=== PATIENT | male | born 1965 | race Caucasian/White ===

== ENCOUNTER → 2016-12-25 | Day surgery (SDC) | payer BC ==
[~2016-12-25] VITALS: Ht 190.5 cm; Wt 131.5 kg
[2016-12-25] VITALS (8 sets, daily range): BP systolic 119–137; BP diastolic 70–86
[~2016-12-25] MED LIST: ALLOPURINOL100 M1 ORAL; COLCHICINE0.6 M1 PO; ELIQUIS5 MG PO; Propofol 10mg/ml 20ml IV ONE
--- NOTE | 2016-12-25 10:42 | Pre-Procedure Note/Attestation ---
Pre-Procedure Note/Attestation Complete Prior to Procedure Planned Procedure: not applicable Procedure Narrative: eus Indications for Procedure Pre-Operative Diagnosis: wt loss, diarrhea, FHX of pancreatic cancer Attestation I attest that I discussed the nature of the procedure; its benefits; risks and complications; and alternatives (and the risks and benefits of such alternatives ), prior to the procedure, with the patient (or the patient's legal territory service representative). I attest that, if there was a reasonable possibility of needing a blood transfusion, the patient (or the patient's legal territory service representative) was given the [facility] standardized written summary, pursuant to the [place] Blood Safety Act ([place] Health and Safety Code # 1645, as amended). I attest that I re-evaluated the patient just prior to the surgery and that there has been no change in the patient's H&P, except as documented below: BRANDON CHING Dec 25, 2016 10:42
--- NOTE | 2016-12-25 10:44 | Short Stay Surgery H&P ---
History of Present Illness History of Present Illness Chief Complaint diarrhea, fhx of pancreatic cancer HPI Jorge Monge is a 51 year old male who was admitted on for Abdominal Pain Patient History PAST MEDICAL HISTORY: (1) dvt/PE (2) Diarrhea Past Surgeries: Social History: Review of Systems Cardiovascular: Reports: no symptoms Respiratory: Reports: no symptoms Skeletal: Reports: no symptoms Gastrointestinal: Reports: other Genitourinary: Reports: no symptoms Endocrine: Reports: no symptoms Hematologic: Reports: no symptoms Physical Exam Skin: normal HENT: normal Heart: normal Lungs: normal Abdomen: normal Extremities: normal Plan Plan of Care EUS Final Diagnosis: Attestation Are the patient's medical conditions optimized for surgery? Attestation Response: yes BRANDON CHING Dec 25, 2016 10:44
--- NOTE | 2016-12-25 11:59 | Endoscopy Procedure Note ---
Endoscopy Procedure Note Indication for Procedure: diarhea, recent dvt Procedures Performed: other - EUS Operative Findings/Diagnosis: normal Specimen: none Pt Tolerated Procedure Well: Yes Estimated Blood Loss: none Anesthesiologist: bright Anesthesia: MAC Implant(s) used?: No 50 yrs or older w/o bx or poly: Not Applicable 10yrs. F/U not recommended: Not Applicable BRANDON CHING Dec 25, 2016 11:59
--- NOTE | 2016-12-25 12:06 | Anethesia Preoperative Eval ---
Anesthesia Pre-op PMH/ROS General Date of Evaluation: Dec 25, 2016 Time of Evaluation: 11:25 Anesthesiologist: bright ASA Score: ASA 3 Mallampati Score Class I : Soft palate, uvula, fauces, pillars visible Class II: Soft palate, uvula, fauces visible Class III: Soft palate, base of uvula visible Class IV: Only hard plate visible Mallampati Classification: Class II Surgeon: kranthi Diagnosis: abdominal pain, diarrhea, familly hx pancreatic Ca Surgical Procedure: EUS Anesthesia History: none Allergies: Coded Allergies: NO KNOWN ALLERGIES (Verified Allergy, Unknown, 12/25/16) Past Medical History Pulmonary: Reports: other - pulmonary emboli (10/16) Hematology/Immune: Reports: DVT Anesthesia Pre-op Phys. Exam Physician Exam Last Vital Signs Date Time Temp Pulse Resp B/P Pulse Ox O2 Delivery O2 Flow Rate FiO2 12/25/16 11:21 97.5 73 20 137/86 97 Room Air Airway Exam Mallampati Score: Class II Teeth: intact Anesthesia Pre-op A/P Risk Assessment & Plan Plan: propofol Status Change Before Surgery: Jon Soto MD Dec 25, 2016 12:06
--- NOTE | 2016-12-25 12:07 | Immediate Post-Op Evaluation ---
Immediate Post-Op Evalulation Immediate Post-Op Evalulation Date of Evaluation: Dec 25, 2016 Pain Score (1-10): 0 Nausea: No Vomiting: No Complications none Patient Status: awake, patent, none Hydration Status: adequate Jon Nicole MD Dec 25, 2016 12:07
--- NOTE | 2016-12-25 12:09 | 48 Hour Post Anesthesia Eval ---
Post Anesthesia Evaluation Date of Evaluation: Dec 25, 2016 Airway: patent Nausea: No Vomiting: No Pain Intensity: 0 Hydration Status: adequate Cardiopulmonary Status: stable Mental Status/LOC: patient returned to baseline Follow-up Care/Observations: n/.a Post-Anesthesia Complications: tolerated well Follow-up care needed: ready to discharge Jon Nicole MD Dec 25, 2016 12:09
--- NOTE | 2016-12-25 12:22 | Immediate Post-Op Evaluation ---
Immediate Post-Op Evalulation Immediate Post-Op Evalulation Date of Evaluation: Dec 25, 2016 Time of Evaluation: 12:25 IV Fluids: 600 Blood Pressure Systolic: 123 Blood Pressure Diastolic: 74 Pulse Rate: 56 Respiratory Rate: 20 O2 Sat by Pulse Oximetry: 95 Temperature (Fahrenheit): 98 Pain Score (1-10): 0 Nausea: No Vomiting: No Complications none Patient Status: awake, patent, none Hydration Status: adequate Jon Nicole MD Dec 25, 2016 12:22
--- NOTE | 2016-12-27 14:31 | Cardiology Report ---
APPROVED REPORT EKG Measurement Heart [id number] Sinus bradycardia Otherwise normal ECG
--- NOTE | 2016-12-28 09:18 | Procedure Note ---
DATE OF PROCEDURE: 12/25/2016 SURGEON: Jose Jack M.D. PROCEDURE: Endoscopic ultrasound. ANESTHESIOLOGIST: Jon Nicole M.D. INSTRUMENT: Olympus adult EUS scope. INDICATION: Family history of pancreatic cancer. Father of pancreatic cancer in the mid 50s. The patient had a recent DVT without any obvious cause, diarrhea, chronic. REASON FOR PROCEDURE: The procedure, risks, benefits, and possible consequences, including hemorrhage, aspiration, perforation and infection, and alternative treatments, were explained to the patient/legal guardian by Dr. Jose Jack and the patient/legal guardian understood and accepted these risks. DESCRIPTION OF PROCEDURE: After informed consent was obtained and the patient was adequately sedated, Olympus EUS scope was advanced from mouth into the second portion of the duodenum and pancreatic parenchyma was carefully examined and the gastroduodenal mucosa. The patient had scan at GE junction. He had normal celiac axis without any obvious celiac axis lymphadenopathy. Pancreatic body and tail was examined while the scope was in the stomach. There was no evidence of any pancreatic duct dilatation. Pancreatic duct measured about 2 to 2.5 mm in size in the body and tail. Then, the scope was advanced into the duodenal bulb and second portion of the duodenum where the pancreatic head was examined. Gallbladder was seen without any stone in it. Common bile duct was measured to about 6 mm without any obvious filling defect. The pancreatic duct was not seen at the head because it was small. Some prominence of the ampulla, but without any obvious mass. The patient tolerated the procedure well without any complication. SUMMARY OF FINDINGS: Normal endoscopic ultrasound with no obvious cause for diarrhea and recent onset of DVT. No obvious pancreatic mass at this time. I want to thank, Dr. Tushar Chacon, for this kind referral. Jose Jack M.D. DR: MIKHAIL JOB#: [id number] CC: Tushar Chacon M.D.
== END | disposition home or self-care (01) ==
LOC: GAS 09:23
DX: Z80.0 Family history of malignant neoplasm of digestive organs (principal); R19.7 Diarrhea, unspecified; Z86.718 Personal history of other venous thrombosis and embolism; Z86.711 Personal history of pulmonary embolism
CPT/HCPCS: 43237; 93005; J2704; 94003; 94150

== ENCOUNTER 2017-01-26 09:54 | Outpatient (CLI) | payer BC ==
[~2017-01-26 09:54] MED LIST changes: -Propofol 10mg/ml 20ml IV ONE
--- NOTE | 2017-01-26 11:27 | GI Progress Note ---
Assessment/Plan Problems: (1) Encounter for diagnostic endoscopy ICD Codes: Z01.818 - Encounter for other preprocedural examination SNOMED: 391237629, [id number] (2) Anemia ICD Codes: D64.9 - Anemia, unspecified SNOMED: 762089280 Status: stable Status Narrative Discussed with Dr. Jack. Assessment/Plan SBCE today. RTC x 1 day. Subjective Gastrointestinal/Abdominal: Reports: no symptoms Subjective here for SBCE Objective General Appearance: no apparent distress, alert Cardiovascular: normal rate Respiratory/Chest: normal breath sounds, no respiratory distress Abdominal Exam: normal bowel sounds, non tender, soft Genitourinary/Rectal: normal genital exam Extremities: normal range of motion, non-tender Kami Srivastava N.P. January 26, 2017 11:27
== END 2017-01-26 10:30 | disposition home or self-care (01) ==
LOC: PAN 09:54
DX: Z01.818 Encounter for other preprocedural examination (principal); D64.9 Anemia, unspecified